=== PATIENT | male | born 1985 | race African-American/Black ===

== ENCOUNTER 2022-01-05 19:39 | Emergency (ER) | payer SELFPAY ==
--- OUTSIDE RECORDS SUMMARY | 2022-01-05 19:44 | XMS REPORT | Continuity of Care Document ---
:1985 Author Organization [facility] t Address [address] [place] [address] Care Team Providers Name Role Phone PCP, PATIENT DOES NOT HAVE A Primary Care Physician Unavaila ble HANY GRUBBS Attending Clinician Unavailable OLI PERKINS Attending Clinician Unavailable HANY GRUBBS Admitting Clinician Unavailable Problems Condition Condition Condition Status Onset Resolution Last Treating Co mments Source Name Details Category Date Date Treatment Clinician Date Nonintract Nonintract Disease Active 2017-03 M [facility]i able able [facility] headache headache 00:00: Hospit a 00 l Allergies, Adverse Reactions, Alerts Allergy Allergy Status Severity Reaction(s) Onset Inactive Treating Comm ents Source Name Type Date Date Clinician Bee Propensi Active Methodi Pollen ty to 04 st adverse 00:00: Hospita reaction 00 l s to drug NO KNOWN Drug Active [facility] ALLERGIE Class ity of [facility] Social History Social Habit Start Date Stop Date Quantity Comments Source History of Smokes tobacco [facility] Alcohol intake 2018-03-20 2018-03-20 Current drinker [facility] 00:00:00 00:00:00 of alcohol Hospital (finding) Tobacco use and 2017-07-27 2017-07-27 User of smokeless [facility] exposure 00:00[facility]00 00:00:00 tobacco Hospital Sex [facility]igned At [birth year] [facility] Smoking Status Start Date Stop Date Source Smokes tobacco daily 2017-07-27 00:00:[address] [facility] Medications Ordered Filled Start Stop Current Ordering Indication Dosage Frequency Signature Comments Components Source Medication Medication Date Date Medication? Clinician (SIG) Name Name No known 2017-03 No No known [facility] medications 05-[address] 02:32: s Hospita 08 l Procedures This patient has no known procedures. Plan of Care Planned Activity Planned Date Details Comments Source Future Scheduled 2021-11-21 HEPATITIS B [facility] Test 14:50:03 VACCINES (1 of 3 - 3-dose series) [code = HEPATITIS B VACCINES (1 of 3 - 3-dose series)] Future Scheduled 2021-11-21 COVID-19 VACCINE [facility] Test 14:50:03 (#1) [code = COVID-19 VACCINE (#1)] Future Scheduled 2021-11-21 INFLUENZA VACCINE Method [facility] Test 14:50:03 [code = INFLUENZA VACCINE] Encounters Start End Encounter Admission Attending Care Care Encounter Source Date/Time Date/Time Type Type Clinicians Facility Department ID 2019-06-19 2019-06-19 Emergency X [facility] ERT [id number] [facility] 04:41:10 06:09:00 HANY julianna [facility] 2019-06-03 2019-06-03 Emergency X [facility] ERT [id number] [facility] 09:00:44 09:00:44 OLI [facility] Results This patient has no known results.
--- NOTE | 2022-01-05 20:53 | RAD REPORT ---
EXAM DESCRIPTION: CTSpine Lumbar Wo Con01/05/2022 8:36 pm CLINICAL HISTORY: Back pain status post injury COMPARISON: None TECHNIQUE: Computed axial tomography lumbar spine was obtained with coronal and sagittal reconstruct ion. All CT scans are performed using dose optimization technique as appropriate and may include automated exposure control or mA/KV adjustment according to patient size. FINDINGS: No fracture is seen. No dislocation is noted. Possible small left paracentral disc herniation L4-5. IMPRESSION: Negative for a lumbar fracture. Possible small left paracentral disc herniation L4-5. Nonemergent MRI lumbar spine recommended further evaluation
[2022-01-05] MEDS ORDERED: HYDROCODONE/APAP 5/325 MG TAB ONE (20:57)
[2022-01-05] MEDS ORDERED: DIAZEPAM 5 MG TABLET ONE (20:57)
--- NOTE | 2022-01-05 21:37 | ER ---
Nurse's Notes [facility] Name: Errol Adrian Age: 36 yrs Sex: Male : 1985 Arrival Date: 01/05/2022 Time: 19:45 Bed 14 Private MD: Diagnosis: Low back pain;Muscle spasm of back Presentation: 01/05 19:45 Chief complaint: EMS states: Pt was lifting weights doing squats when he got stuck jb4 while going down. He tried to get up and lost his footing. The weights did not fall on him. His girlfriend was there and tried to assist but was unable to. He has a 20g in the left AC and was given 17mg of Ketamine. Noticeable knot on the lower spine. Coronavirus screen: At this time, the client does not indicate any symptoms associated with coronavirus-19. Ebola Screen: No symptoms or risks identified at this time. Initial Sepsis Screen: Does the patient meet any 2 criteria? No. Patient's initial sepsis screen is negative. Does the patient have a suspected source of infection? No. Patient's initial sepsis screen is negative. Risk Assessment: Do you want to hurt yourself or someone else? Patient reports no desire to harm self or others. Onset of symptoms was January 05, 2022. Transition of care: patient was not received from another setting of care. 19:45 Method Of Arrival: EMS: [facility] jb4 19:45 Acuity: IDA 2 jb4 Historical: - Allergies: 19:48 Bees; jb4 - Home Meds: 19:48 None [Active]; jb4 - PMHx: 19:48 None; jb4 - PSHx: 19:48 None; jb4 - Immunization history:: Adult Immunizations up to date. - Social history:: Smoking status: unknown. Screenin:45 Abuse screen: Denies threats or abuse. Nutritional screening: No deficits noted. em6 Tuberculosis screening: No symptoms or risk factors identified. Fall Risk Ambulatory Aid- None/Bed Rest/Nurse Assist (0 pts). Mental Status- Total Silva Fall Scale indicates No Risk (0-24 pts). Assessment: 19:45 General: Appears in no apparent distress. comfortable, Behavior is calm, cooperative, jb4 appropriate for age. Pain: Complains of pain in lumbar area Pain does not radiate. Pain currently is 0 out of 10 on a pain scale. at worst was 10 out of 10 on a pain scale. Neuro: Level of Consciousness is awake, alert, obeys commands, Oriented to person, place, time, situation, Weakness in bilateral arm(s) leg(s) Numbness in right foot, left foot, right leg and left leg. Cardiovascular: Patient's skin is warm and dry. Respiratory: Airway is patent Respiratory effort is even, unlabored, Respiratory pattern is regular, symmetrical. GI: No signs and/or symptoms were reported involving the gastrointestinal system. : No signs and/or symptoms were reported regarding the genitourinary system. EENT: No signs and/or symptoms were reported regarding the EENT system. Derm: Skin is intact, Skin is dry, Skin is normal, Skin temperature is warm. Musculoskeletal: Circulation, motion, and sensation intact. Range of motion: intact in all extremities. 20:30 Reassessment: Patient appears in no apparent distress at this time. Patient and/or 4 family updated on plan of care and expected duration. Pain level reassessed. Patient is alert, oriented x 3, equal unlabored respirations, skin warm/dry/pink. 21:30 Reassessment: Patient and/or family updated on plan of care and expected duration. Pain em6 level reassessed. Patient is alert, oriented x 3, equal unlabored respirations, skin warm/dry/pink. Vital Signs: 19:45 BP 135 / 72; Pulse 72; Resp 16; Temp 98.8(O); Pulse Ox 100% on R/A; Weight 81.65 kg jb4 (R); Height 6 ft. 1 in. (185.42 cm) (R); Pain 0/10; 20:15 BP 128 / 81; Pulse 48; Resp 16; Pulse Ox 99% on R/A; jb4 21:45 BP 103 / 87; Pulse 60; Resp 18; Pulse Ox 100% on R/A; em6 19:45 Body Mass Index 23.75 (81.65 kg, 185.42 cm) jb4 Kiel Coma Score: 20:15 Eye Response: spontaneous(4). Verbal Response: oriented(5). Motor Response: obeys [facility] commands(6). Total: 15. Trauma Score (Adult): 20:15 Eye Response: spontaneous(1); Verbal Response: oriented(1); Motor Response: obeys jb4 commands(2); Systolic BP: > 89 mm Hg(4); Respiratory Rate: 10 to 29 per min(4); Kiel Score: 15; Trauma Score: 12 ED Course: 19:45 Patient arrived in ED. jb4 19:45 Arm band placed on. em6 19:45 Patient has correct armband on for positive identification. Bed in low position. Call em6 light in reach. Side rails up X2. Warm blanket given. 19:45 Maintain EMS IV. Dressing intact. Good blood return noted. Site clean \T\ dry. Gauge \T\ em 6 site: 20 G left AC. IV discontinued, intact, bleeding controlled, No redness/swelling at site. Pressure dressing applied. 19:48 Triage completed. jb4 19:48 Sid Han DO is Attending Physician. ms3 19:48 Gerardo Villarreal, RN is Primary Nurse. ke1 20:36 CT Lumbar Spine Wo Con In Process Unspecified. EDMS 22:17 No provider procedures requiring assistance completed. em6 Administered Medications: 21:00 Drug: HYDROcodone-acetaminophen 5 mg-325 mg 1 tabs Route: PO; em6 21:53 Follow up: Response: No adverse reaction; RASS: Alert and Calm (0) em6 21:00 Drug: Valium (diazepam) 5 mg Route: PO; em6 21:53 Follow up: Response: No adverse reaction; RASS: Alert and Calm (0) em6 Medication: 21:52 VIS not applicable for this client. em6 Outcome: 21:36 Discharge ordered by MD. ms3 22:18 Discharged to home via wheelchair. em6 22:18 Condition: stable 22:18 Discharge instructions given to patient, Instructed on discharge instructions, follow up and referral plans. medication usage, Demonstrated understanding of instructions, follow-up care, medications, Prescriptions given X 2. 22:19 Patient left the ED. em6 Signatures: Dispatcher [employer] EDMS Mario South RN CHINO jb4 Sid Han DO DO ms3 Gerardo Villarreal RN RN ke1 Lauryn Black RN RN em6 Corrections: (The following items were deleted from the chart) 21:51 19:48 Arm band placed on jb4 em6
--- NOTE | 2022-01-05 21:37 | EDPHYS ---
Physician Documentation [facility] Name: Errol Adrian Age: 36 yrs Sex: Male : 1985 Arrival Date: 01/05/2022 Time: 19:45 Bed 14 Private MD: ED Physician Sid Han HPI: 01/05 21:23 This 36 yrs old Black Male presents to ER via EMS with complaints of back pain. ms3 21:23 36-year-old male with no past medical history presents for lower back pain that ms3 occurred while exercising doing squats. Patient states the pain is severe. Patient states the pain is better when lying flat on his back and being still. Patient is severe with movement. Patient denies urinary or bowel incontinence, urinary retention, weakness, numbness.. Historical: - Allergies: 19:48 Bees; jb4 - Home Meds: 19:48 None [Active]; jb4 - PMHx: 19:48 None; jb4 - PSHx: 19:48 None; jb4 - Immunization history:: Adult Immunizations up to date. - Social history:: Smoking status: unknown. ROS: 21:23 Constitutional: Negative for fever, and chills. Neck: Negative for injury, pain, and ms3 swelling, Cardiovascular: Negative for chest pain, and palpitations. Respiratory: Negative for shortness of breath, cough, wheezing, and pleuritic chest pain, Abdomen/GI: Negative for abdominal pain, nausea, vomiting, diarrhea, and constipation, MS/Extremity: Negative for injury and deformity, Skin: Negative for injury, rash, and discoloration. 21:23 Back: Positive for pain with movement. 21:23 All other systems are negative. Exam: 21:23 Constitutional: This is a well developed, well nourished patient who is awake, alert, ms3 and in no acute distress. Head/Face: Normocephalic, atraumatic. Neck: Trachea midline, no cervical lymphadenopathy. Supple, full range of motion without nuchal rigidity, or vertebral point tenderness. No Meningismus. Chest/axilla: Normal chest wall appearance and motion. Nontender with no deformity. Cardiovascular: Regular rate and rhythm with a normal S1 and S2. No gallops, murmurs, or rubs. Normal PMI, no JVD. No pulse deficits. Respiratory: Lungs have equal breath sounds bilaterally, clear to auscultation and percussion. No rales, rhonchi or wheezes noted. No increased work of breathing, no retractions or nasal flaring. Abdomen/GI: Soft, non-tender, with normal bowel sounds. No distension or tympany. No guarding or rebound. No evidence of tenderness throughout. Skin: Warm, dry with normal turgor. Normal color with no rashes, no lesions, and no evidence of cellulitis. 21:23 Back: pain, that is severe, of the left low back and right low back. Vital Signs: 19:45 BP 135 / 72; Pulse 72; Resp 16; Temp 98.8(O); Pulse Ox 100% on R/A; Weight 81.65 kg jb4 (R); Height 6 ft. 1 in. (185.42 cm) (R); Pain 0/10; 20:15 BP 128 / 81; Pulse 48; Resp 16; Pulse Ox 99% on R/A; jb4 21:45 BP 103 / 87; Pulse 60; Resp 18; Pulse Ox 100% on R/A; em6 19:45 Body Mass Index 23.75 (81.65 kg, 185.42 cm) jb4 Kiel Coma Score: 20:15 Eye Response: spontaneous(4). Verbal Response: oriented(5). Motor Response: obeys jb4 commands(6). Total: 15. Trauma Score (Adult): 20:15 Eye Response: spontaneous(1); Verbal Response: oriented(1); Motor Response: obeys jb4 commands(2); Systolic BP: > 89 mm Hg(4); Respiratory Rate: 10 to 29 per min(4); Deaver Score: 15; Trauma Score: 12 MDM: 19:55 Patient medically screened. ms3 21:23 Data reviewed: vital signs, nurses notes, radiologic studies, and as a result, I will ms3 discharge patient. Counseling: I had a detailed discussion with the patient and/or guardian regarding: the historical points, exam findings, and any diagnostic results supporting the discharge/admit diagnosis, radiology results, the need for outpatient follow up, to return to the emergency department if symptoms worsen or persist or if there are any questions or concerns that arise at home. ED course: Discussed CT of lumbar spine with patient and his . Patient to follow-up with Dr. Kush Grande in 2 to 3 days. Patient understands and agrees with plan. All questions were answered. Return precautions discussed include worsening symptoms, or any other concerns. 01/05 19:56 Order name: CT Lumbar Spine Wo Con; Complete Time: 20:59 ms3 Administered Medications: 21:00 Drug: HYDROcodone-acetaminophen 5 mg-325 mg 1 tabs Route: PO; em6 21:53 Follow up: Response: No adverse reaction; RASS: Alert and Calm (0) em6 21:00 Drug: Valium (diazepam) 5 mg Route: PO; em6 21:53 Follow up: Response: No adverse reaction; RASS: Alert and Calm (0) em6 Disposition Summary: 01/05/22 21:36 Discharge Ordered Location: Home ms3 Condition: Stable ms3 Diagnosis - Low back pain ms3 - Muscle spasm of back ms3 Followup: ms3 - With: Private Physician - When: 2 - 3 days - Reason: Recheck today's complaints Discharge Instructions: - Discharge Summary Sheet ms3 - Acute Back Pain, Adult ms3 Forms: - Medication Reconciliation Form ms3 - Thank You Letter ms3 - Antibiotic Education ms3 - Prescription Opioid Use ms3 Prescriptions: - Ibuprofen 600 mg Oral Tablet - take 1 tablet by ORAL route every 6 hours As needed take with food; 30 tablet; ms3 Refills: 0, Product Selection Permitted - Cyclobenzaprine 10 mg Oral Tablet - take 1 tablet by ORAL route every 8 hours As needed; 30 tablet; Refills: 0, ms3 Product Selection Permitted Signatures: Dispatcher [employer] Mraio Mena, RN RN jb4 Sid Han DO DO ms3 Lauryn Black, RN RN em6
[2022-01-05 22:27] VITALS: TEMP 98.8
[2022-01-05 22:29] VITALS: BP 103/87; O2SAT 100
== END 2022-01-05 22:19 | disposition home or self-care (01) ==
LOC: ER 19:39
DX: M54.50 Low back pain, unspecified (principal); M62.830 Muscle spasm of back
CPT/HCPCS: 72131; 99284

== ENCOUNTER 2022-11-17 17:38 | Emergency (ER) | payer SELFPAY ==
--- OUTSIDE RECORDS SUMMARY | 2022-11-17 17:40 | XMS REPORT | Continuity of Care Document ---
:1985 Author Organization [facility] t Address [address] [place] [address] Care Team Providers Name Role Phone Asked, No Pcp Primary Care Physician Unavailable HANY GRUBBS Attending Clinician Unavailable OLI PERKINS Attending Clinician Unavailable HANY GRUBBS Admitting Clinician Unavailable Problems Condition Condition Condition Status Onset Resolution Last Treating Co mments Source Name Details Category Date Date Treatment Clinician Date Nonintract Nonintract Disease Active 2017-03 M ethodi able able 2 st headache headache 00:00: Hospit a 00 l Allergies, Adverse Reactions, Alerts Allergy Allergy Status Severity Reaction(s) Onset Inactive Treating Comm ents Source Name Type Date Date Clinician Bee Propensi Active Methodi Pollen ty to [address] adverse 00:00: Hospita reaction 00 l s to drug NO KNOWN Drug Active [facility] ALLERGIE Class ity of S [facility] Social History Social Habit Start Date Stop Date Quantity Comments Source Gender identity [facility] History of tobacco Smokes tobacco [facility] History of Social 2018-11-13 2018-11-[address] function 00:00:00 00:00:00 Hospital Alcohol intake 2018-03-20 2018-03-20 Current drinker [facility] 00:00:00 00:00:00 of alcohol Hospital (finding) Tobacco use and 2017-07-27 2017-07-27 [facility] of [facility] exposure 00:00:00 00:00:00 sm[facility]eless Hospital tobacco Sex Assigned At [birth year] [facility] 00:[facility] Hospital Smoking Status Start Date Stop Date Source Smokes tobacco daily 2017-07-27 00:00:00 [facility] Medications Ordered Filled Start Stop Current Ordering Indication Dosage Frequency Signature Comments Components Source Medication Medication Date Date Medication? Clinician (SIG) Name Name No known 2017-03 No No known [facility] medications 2-[address] 02:32: s Hospita 08 l Procedures This patient has no known procedures. Plan of Care Planned Activity Planned Date Details Comments Source Future Scheduled 2022-11-17 COVID-19 VACCINE [facility] Test 02:48:27 (#1) [code = COVID-19 VACCINE (#1)] Future Scheduled 2022-11-[address] [facility] Test 02:48:27 (#1) [code = INFLUENZA VACCINE (#1)] Future Scheduled 2021-11-21 COVID-19 VACCINE [facility] Test 14:50:03 (#1) [code = COVID-19 VACCINE (#1)] Future Scheduled 2021-11-[address] [facility] Test 14:50:03 [code = INFLUENZA VACCINE] Future Scheduled 2021-11-21 [facility]ITIS B [facility] Test 14:50:03 VACCINES (1 of 3 - 3-dose series) [code = HEPATITIS B VACCINES (1 of 3 - 3-dose series)] Encounters Start End Encounter Admission Attending Care Care Encounter Source Date/Time Date/Time Type Type Clinicians Facility Department ID 2019-06-19 2019-06-19 Emergency X [facility] ERT [id number] [facility] 04:41:10 06:09:00 HANY ricks [facility] 2019-06-03 2019-06-03 Emergency X [facility] ERT [id number] [facility] 09:00:44 09:00:44 OLI julianna [facility] Results This patient has no known results.
[2022-11-17] MEDS ORDERED: NA CHLORIDE 0.9% 50 ML ONE (18:31)
[2022-11-17] MEDS ORDERED: NA CHLORIDE 0.9% 1,000 ML ONE (18:31)
[2022-11-17] MEDS ORDERED: KETOROLAC 30 MG/ML INJ ONE ×2 (18:31→18:43)
[2022-11-17] MEDS ORDERED: METOCLOPRAMIDE 10 MG/2mL INJ ONE (18:31)
[2022-11-17] MEDS ORDERED: DIPHENHYDRAMINE 50 MG/ML VIAL ONE ×2 (18:31→18:43)
[2022-11-17 18:47] LABS: Hematocrit 46.9 % (39.6-49.0); Lymphocytes % 34.5 % (15.3-44.8); MCV 83.5 fL (80-100); MPV 7.8 fL (7.6-11.3); Platelets 274 thou/uL (152-406); RBC Red Blood Cell Count 5.62 M/uL (4.33-5.43)
--- NOTE | 2022-11-17 18:52 | RAD REPORT ---
EXAM DESCRIPTION: CT - Head Brain Wo Cont - 11/17/2022 6:39 pm CLINICAL HISTORY: HEADACHE COMPARISON: Head Brain Wo Cont dated 10/08/2016 TECHNIQUE: Noncontrast head CT images were obtained without IV contrast. Multiplanar reformats were generated and reviewed. All CT scans are performed using dose optimization technique as appropriate and may include automated exposure control or mA/KV adjustment according to patient size. FINDINGS: No intracranial hemorrhage, mass, or edema. Midline structures are unremarkable. Normal ventricular caliber for age. Mcgrath-white matter differentiation is preserved, without evidence of acute infarct. No abnormal extra- axial fluid collections. Mastoid air cells and visualized portions of the paranasal sinuses are clear. No acute bony findings. IMPRESSION: No evidence of an acute intracranial process.
--- NOTE | 2022-11-17 19:30 | RAD REPORT ---
EXAM DESCRIPTION: Beata Single View11/17/2022 6:55 pm CLINICAL HISTORY: COUGH TECHNIQUE: Portable AP view of the chest. FINDINGS: The lungs are clear. No pneumothorax or effusion. The cardiomediastinal contours are unrem arkable. IMPRESSION: No acute cardiopulmonary process.
[2022-11-17 19:34] LABS: Bilirubin Total 1.6 mg/dL (0.2-1.0); Potassium 3.8 mEq/L (3.5-5.1); Protein, Total 7.2 g/dL (6.4-8.2)
[2022-11-17] MEDS ORDERED: ONDANSETRON 4 MG/2 ML VIAL ONE (19:48)
[2022-11-17] MEDS ORDERED: MORPHINE 4 MG/ML SYR ONE (19:48)
--- NOTE | 2022-11-17 20:29 | RAD REPORT ---
EXAM DESCRIPTION: CT - Head angio - 11/17/2022 8:06 pm CLINICAL HISTORY: HEADACHE COMPARISON: Head Brain Wo Cont dated 11/17/2022; Head Brain Wo Cont dated 10/08/2016; Neck Angio dated 11/17/2022 TECHNIQUE: Axial CT angiography images of the head was performed with multiplanar and maximum intens ity projection reconstructions. Images performed following intravenous administration of 90mL Isovue 370. All CT scans are performed using dose optimization technique as appropriate and may include automated exposure control or mA/KV adjustment according to patient size. FINDINGS: No evidence of large vessel occlusion. No evidence of aneurysm or dissection flap is detec juan. No flow-limiting stenosis or vascular malformation identified. Antegrade flow is seen in the vertebral arteries. The vertebral arteries are codominant. The visualized dural venous sinuses are grossly patent. IMPRESSION: No evidence of large vessel occlusion or flow-limiting stenosis.
--- NOTE | 2022-11-17 20:33 | RAD REPORT ---
EXAM DESCRIPTION: CT - Neck Angio - 11/17/2022 8:07 pm CLINICAL HISTORY: HEADACHE COMPARISON: Head angio dated 11/17/2022; Head Brain Wo Cont dated 11/17/2022 TECHNIQUE: Axial CT angiography images of the head was performed with multiplanar and maximum intens ity projection reconstructions. Images performed following intravenous administration of 90mL Isovue 370. All CT scans are performed using dose optimization technique as appropriate and may include automated exposure control or mA/KV adjustment according to patient size. Quantification of carotid stenosis, if any, is performed according to NASCET criteria. FINDINGS: Motion artifact somewhat limits evaluation. A left aortic arch is identified with normal three vessel configuration of the great vessels. No significant flow abnormality is seen of the common carotid bilaterally. No significant stenosis is identified involving the cervical segments of both internal carotid arteri es. Independent origin of the left vertebral artery as the fourth vessel from the arch. Normal flow is se en within both vertebral arteries. Right apical bulla is noted. IMPRESSION: No significant flow abnormality of the neck vessels is identified. CAROTID STENOSIS REFERENCE USING NASCET CRITERIA: % ICA stenosis = (1 - narrowest ICA diameter/diameter of distal cervical ICA) x 100. Mild - <50% stenosis. Moderate - 50-69% stenosis. Severe - 70-94% stenosis. Near occlusion - 95-99% stenosis. Occluded - 100% stenosis.
--- NOTE | 2022-11-17 20:35 | ER ---
Nurse's Notes [facility] Name: Errol Adrian Age: 37 yrs Sex: Male : 1985 Arrival Date: 11/17/2022 Time: 17:38 Bed 6 Private MD: Diagnosis: Headache;Migraine without aura, not intractable Presentation: 11/17 17:56 Chief complaint: Spouse and/or significant other states: Migraine since 1300 today, jl7 worse one he's ever had. Works nights, went to be at 0400 and woke at 1300 with the migraine, double vision in left eye and stabbing pain behind right eye. Coronavirus screen: At this time, the client does not indicate any symptoms associated with coronavirus-19. Ebola Screen: No symptoms or risks identified at this time. Initial Sepsis Screen: Does the patient meet any 2 criteria? No. Patient's initial sepsis screen is negative. Does the patient have a suspected source of infection? No. Patient's initial sepsis screen is negative. Risk Assessment: Do you want to hurt yourself or someone else? Patient reports no desire to harm self or others. Onset of symptoms is unknown. 17:56 Method Of Arrival: Ambulatory 7 17:56 Acuity: IDA 3 jl7 Triage Assessment: 17:59 Headache History: The patient has had previous headaches and this one is more severe jl7 than previous episodes. General: Appears in no apparent distress. uncomfortable, Behavior is cooperative, anxious. Pain: Complains of pain in HURLEY Pain currently is 10 out of 10 on a pain scale. Pain began suddenly, Also complains of nausea. Neuro: Level of Consciousness is awake, alert, obeys commands, Oriented to person, place, time, situation, Moves all extremities. Full function Gait is steady, Speech is normal, Facial symmetry appears normal. Historical: - Allergies: 17:59 Bees; jl7 - Home Meds: 17:59 None [Active]; jl7 - PMHx: 17:59 Migraine; jl7 - PSHx: 17:59 None; jl7 - Immunization history:: Adult Immunizations unknown. - Social history:: Smoking status: Patient reports the use of cigarette tobacco products, cigars. Screenin:14 [facility] ED Fall Risk Assessment (Adult) History of falling in the last 3 months, ph including since admission No falls in past 3 months (0 pts) Confusion or Disorientation No (0 pts) Intoxicated or Sedated No (0 pts) Impaired Gait No (0 pts) Mobility Assist Device Used No (0 pt) Altered Elimination No (0 pt) Score/Fall Risk Level 0 - 2 = Low Risk Oriented to surroundings, Maintained a safe environment, Provided non-skid footwear, Hourly rounding (assess needs \T\ fall precautionary measures) done. Abuse screen: Denies threats or abuse. Denies injuries from another. Nutritional screening: No deficits noted. Tuberculosis screening: No symptoms or risk factors identified. Assessment: 18:39 General: Appears in no apparent distress. uncomfortable, Behavior is calm, cooperative, ph appropriate for age. Pain: Complains of pain in right caodaism and right eye. Neuro: 19:47 General: Appears in no apparent distress. uncomfortable, Behavior is calm, cooperative. lg3 Pain: Complains of pain in right eye and right caodaism. Neuro: No deficits noted. Ruiz Agitation-Sedation Scale (RASS): 0 - Alert and Calm Level of Consciousness is awake, alert, obeys commands, Oriented to person, place, time, situation. Cardiovascular: No deficits noted. Denies chest pain, shortness of breath, Capillary refill < 3 seconds Clubbing of nail beds is absent JVD is absent Patient's skin is warm and dry. Respiratory: No deficits noted. Airway is patent Respiratory effort is even, unlabored, Respiratory pattern is regular, symmetrical. GI: Abdomen is round non-distended, Pt is actively vomiting bile. : No deficits noted. No signs and/or symptoms were reported regarding the genitourinary system. EENT: No deficits noted. No signs and/or symptoms were reported regarding the EENT system. Derm: Skin is intact, is healthy with good turgor, Skin is clammy, Skin is normal, Skin temperature is cool. Musculoskeletal: No deficits noted. No signs and/or symptoms reported regarding the musculoskeletal system. Circulation, motion, and sensation intact. Range of motion: intact in all extremities. Vital Signs: 17:56 BP 154 / 69; Pulse 73; Resp 17; Temp 97.9; Pulse Ox 100% ; Weight 72.57 kg; Height 6 jl7 ft. 1 in. ; Pain 10/10; 18:51 BP 149 / 78; Pulse 72; Resp 18; Pulse Ox 100% on NC; ph 19:47 BP 122 / 70; Pulse 63; Resp 17 S; Temp 98.2(O); Pulse Ox 100% on 2 lpm NC; lg3 20:55 BP 130 / 78; Pulse 62; Resp 18 S; Pulse Ox 100% on R/A; as6 17:56 Body Mass Index 21.11 (72.57 kg, 185.42 cm) jl7 17:56 Pain Scale: Adult jl7 Kiel Coma Score: 19:39 Eye Response: spontaneous(4). Motor Response: obeys commands(6). Verbal Response: lorie oriented(5). Total: 15. ED Course: 17:41 Patient arrived in ED. mr 17:59 Triage completed. jl7 17:59 Arm band placed on right wrist. jl7 18:05 Freddy Sawyer MD is Attending Physician. lorie 18:13 Alexandria Alvarez, RN is Primary Nurse. ph 18:14 Patient has correct armband on for positive identification. Bed in low position. Call light in reach. Side rails up X 1. Pulse ox on. NIBP on. Door closed. Noise minimized. Lights dimmed. Warm blanket given. 18:41 CT Head Brain wo Cont In Process Unspecified. EDMS 18:51 Initial lab(s) drawn, by me, sent to lab. Inserted saline lock: 20 gauge in right ph antecubital area, using aseptic technique. Blood collected. 18:56 Chest Single View XRAY In Process Unspecified. EDMS 19:56 CRP Sent. lg3 20:08 CT Head Angio In Process Unspecified. EDMS 20:08 CT Neck Angio In Process Unspecified. EDMS 20:17 [facility]C [facility] snw 20:56 Provided Education on: discharge teaching . as6 20:56 No provider procedures requiring assistance completed. IV discontinued, intact, as6 bleeding controlled, No redness/swelling at site. Pressure dressing applied. Administered Medications: 18:48 Drug: diphenhydrAMINE IVP 50 mg Route: IVP; Site: right antecubital; ph 19:55 Follow up: Response: No adverse reaction lg3 18:48 Drug: metoCLOPramide IVP 10 mg Route: IVP; Site: right antecubital; ph 19:55 Follow up: Response: No adverse reaction; No change in condition lg3 18:48 Drug: Ketorolac IVP 30 mg Route: IVP; Site: right antecubital; ph 19:55 Follow up: Response: No adverse reaction lg3 18:48 Drug: NS 0.9% IV 1000 ml Route: IV; Rate: 1 bolus; Site: right antecubital; ph 20:57 Follow up: Response: No adverse reaction; IV Status: Completed infusion; IV Intake: as6 1000ml 19:54 Drug: morphine IVP or IV 4 mg Route: IVP; Infused Over: 4 mins; Site: right antecubital;lg3 20:57 Follow up: Response: No adverse reaction as6 19:54 Drug: Ondansetron IVP 8 mg Route: IVP; Site: right antecubital; lg3 20:57 Follow up: Response: No adverse reaction as6 Medication: 18:13 VIS not applicable for this client. ph Intake: 20:57 IV: 1000ml; Total: 1000ml. as6 Outcome: 20:34 Discharge ordered by . snjerod 20:56 Discharged to home ambulatory. as6 20:56 Condition: stable 20:56 Discharge instructions given to patient, Instructed on discharge instructions, follow up and referral plans. medication usage, Demonstrated understanding of instructions, follow-up care, medications, Prescriptions given X 3. 20:57 Patient left the ED. as6 Signatures: Dispatcher [employer] EDFreddy Breaux MD MD cha Waters, Shelly, SPUDDER-C SPUDDER-Csnw Maci Hodges Alexandria Alvarez RN Harinder Erwin ph, RN RN jl7 Radha Slater RN RN lg3 Aidan Caballero RN RN as6
--- NOTE | 2022-11-17 20:35 | EDPHYS ---
Physician Documentation [facility] Name: Errol Adrian Age: 37 yrs Sex: Male : 1985 Arrival Date: 11/17/2022 Time: 17:38 Bed 6 Private MD: ED Physician Freddy Sawyer HPI: 11/17 19:37 This 37 yrs old Black Male presents to ER via Ambulatory with complaints of Headache. lorie 19:37 The patient complains of pain to the forehead and left eye. lorie Historical: - Allergies: 17:59 Bees; jl7 - Home Meds: 17:59 None [Active]; jl7 - PMHx: 17:59 Migraine; jl7 - PSHx: 17:59 None; jl7 - Immunization history:: Adult Immunizations unknown. - Social history:: Smoking status: Patient reports the use of cigarette tobacco products, cigars. ROS: 19:38 Constitutional: Negative for fever, chills, and weight loss, Eyes: Negative for injury, lorie pain, redness, and discharge, ENT: Negative for injury, pain, and discharge, Neck: Negative for injury, pain, and swelling, Cardiovascular: Negative for chest pain, palpitations, and edema, Respiratory: Negative for shortness of breath, cough, wheezing, and pleuritic chest pain, Abdomen/GI: Negative for abdominal pain, nausea, vomiting, diarrhea, and constipation, Back: Negative for injury and pain, : Negative for injury, bleeding, discharge, and swelling, MS/Extremity: Negative for injury and deformity, Skin: Negative for injury, rash, and discoloration, Psych: Negative for depression, anxiety, suicide ideation, homicidal ideation, and hallucinations, Allergy/Immunology: Negative for hives, rash, and allergies, Endocrine: Negative for neck swelling, polydipsia, polyuria, polyphagia, and marked weight changes, Hematologic/Lymphatic: Negative for swollen nodes, abnormal bleeding, and unusual bruising. 19:38 Neuro: Positive for headache, visual changes, of the left eye and forehead. Exam: 19:38 Constitutional: This is a well developed, well nourished patient who is awake, alert, lorie and in no acute distress. Head/Face: Normocephalic, atraumatic. Eyes: Pupils equal round and reactive to light, extra-ocular motions intact. Lids and lashes normal. Conjunctiva and sclera are non-icteric and not injected. Cornea within normal limits. Periorbital areas with no swelling, redness, or edema. ENT: Nares patent. No nasal discharge, no septal abnormalities noted. Tympanic membranes are normal and external auditory canals are clear. Oropharynx with no redness, swelling, or masses, exudates, or evidence of obstruction, uvula midline. Mucous membranes moist. Neck: Trachea midline, no thyromegaly or masses palpated, and no cervical lymphadenopathy. Supple, full range of motion without nuchal rigidity, or vertebral point tenderness. No Meningismus. Chest/axilla: Normal chest wall appearance and motion. Nontender with no deformity. No lesions are appreciated. Cardiovascular: Regular rate and rhythm with a normal S1 and S2. No gallops, murmurs, or rubs. Normal PMI, no JVD. No pulse deficits. Respiratory: Lungs have equal breath sounds bilaterally, clear to auscultation and percussion. No rales, rhonchi or wheezes noted. No increased work of breathing, no retractions or nasal flaring. Abdomen/GI: Soft, non-tender, with normal bowel sounds. No distension or tympany. No guarding or rebound. No evidence of tenderness throughout. Back: No spinal tenderness. No costovertebral tenderness. Full range of motion. Skin: Warm, dry with normal turgor. Normal color with no rashes, no lesions, and no evidence of cellulitis. MS/ Extremity: Pulses equal, no cyanosis. Neurovascular intact. Full, normal range of motion. Neuro: Awake and alert, GCS 15, oriented to person, place, time, and situation. Cranial nerves II-XII grossly intact. Motor strength 5/5 in all extremities. Sensory grossly intact. Cerebellar exam normal. Normal gait. Psych: Awake, alert, with orientation to person, place and time. Behavior, mood, and affect are within normal limits. 19:47 Neck: Trachea: is midline with no obvious abnormalities, ROM/movement: is normal, no lorie acute changes, pain, is not appreciated, limited range of motion, is not appreciated, Meningeal signs: are not present, Kernig's sign is negative, Brudzinski's sign is negative, Lymph nodes: no appreciated lymphadenopathy. Vital Signs: 17:56 BP 154 / 69; Pulse 73; Resp 17; Temp 97.9; Pulse Ox 100% ; Weight 72.57 kg; Height 6 jl7 ft. 1 in. ; Pain 10/10; 18:51 BP 149 / 78; Pulse 72; Resp 18; Pulse Ox 100% on NC; ph 19:47 BP 122 / 70; Pulse 63; Resp 17 S; Temp 98.2(O); Pulse Ox 100% on 2 lpm NC; lg3 20:55 BP 130 / 78; Pulse 62; Resp 18 S; Pulse Ox 100% on R/A; as6 17:56 Body Mass Index 21.11 (72.57 kg, 185.42 cm) 7 17:56 Pain Scale: Adult jl7 Kiel Coma Score: 19:39 Eye Response: spontaneous(4). Motor Response: obeys commands(6). Verbal Response: lorie oriented(5). Total: 15. MDM: 18:05 Patient medically screened. lorie 19:39 Differential diagnosis: cervical epidural bleed, cerebral vascular accident, epidural lorie hematoma, glaucoma, hyponatremia, intracerebral hemorrhage, meningoencephalitis, sinusitis, subarachnoid bleed, subdural hematoma, temporal arteritis, tension headache, traumatic injuries, trigeminal neuralgia. Data reviewed: vital signs, nurses notes, lab test result(s), EKG, radiologic studies, CT scan, plain films. Consideration of Admission/Observation Escalation of care including admission/observation considered. I considered the following discharge prescriptions or medication management in the emergency department Medications were administered in the Emergency Department. See MAR. Independent interpretation of the following test(s) in the Emergency Department EKG: See my EKG interpretation above CT Scan: My interpretation is ct head negative. Test considered but Not performed: MRI: no mri brain. Historians other than the Patient: Spouse/Significant Other: , infomed. 11/17 18:08 Order name: CBC with Diff; Complete Time: 19:25 [facility] 11/17 18:08 Order name: Comprehensive Metabolic Panel; Complete Time: 19:36 [facility] 11/17 19:36 Order name: Urinalysis w/ reflexes [facility] 11/17 19:36 Order name: UDS [facility] 11/17 19:44 Order name: CRP; Complete Time: 20:34 [facility] 11/17 18:08 Order name: CT Head Brain wo Cont; Complete Time: 19:25 [facility] 11/17 18:08 Order name: Chest Single View XRAY; Complete Time: 19:36 [facility] 11/17 19:36 Order name: CT Head Angio; Complete Time: 20:34 [facility] 11/17 19:36 Order name: CT Neck Angio; Complete Time: 20:35 [facility] 11/17 18:08 Order name: EKG; Complete Time: 18:09 [facility] 11/17 18:08 Order name: EKG - Nurse/Tech; Complete Time: 20:35 [facility] 11/17 18:08 Order name: Oxygen; Complete Time: 18:50 [facility] EC:43 Rate is 53 beats/min. Rhythm is regular. AK interval is normal. QRS interval is normal. snw QT interval is normal. Clinical impression: Sinus bradycardia. Administered Medications: 18:48 Drug: diphenhydrAMINE IVP 50 mg Route: IVP; Site: right antecubital; ph 19:55 Follow up: Response: No adverse reaction lg3 18:48 Drug: metoCLOPramide IVP 10 mg Route: IVP; Site: right antecubital; ph 19:55 Follow up: Response: No adverse reaction; No change in condition lg3 18:48 Drug: Ketorolac IVP 30 mg Route: IVP; Site: right antecubital; ph 19:55 Follow up: Response: No adverse reaction lg3 18:48 Drug: NS 0.9% IV 1000 ml Route: IV; Rate: 1 bolus; Site: right antecubital; ph 20:57 Follow up: Response: No adverse reaction; IV Status: Completed infusion; IV Intake: as6 1000ml 19:54 Drug: morphine IVP or IV 4 mg Route: IVP; Infused Over: 4 mins; Site: right antecubital;lg3 20:57 Follow up: Response: No adverse reaction as6 19:54 Drug: Ondansetron IVP 8 mg Route: IVP; Site: right antecubital; lg3 20:57 Follow up: Response: No adverse reaction as6 Disposition Summary: 11/17/22 20:34 Discharge Ordered Location: Home snw Problem: new snw Symptoms: have improved snw Condition: Stable snw Diagnosis - Headache snw - Migraine without aura, not intractable snw Followup: [facility] - With: Private Physician - When: 2 - 3 days - Reason: Recheck today's complaints, Continuance of care, Re-evaluation by your physician Discharge Instructions: - Discharge Summary Sheet lorie - General Headache Without Cause lorie - Migraine Headache lorie - Migraine Headache, [id number] lorie - General Headache Without Cause, [id number] lorie Forms: - Medication Reconciliation Form snw - Thank You Letter snw - Antibiotic Education snw - Prescription Opioid Use snw - Patient Portal Instructions snw - Leadership Thank You Letter snw Prescriptions: - Fioricet with Codeine 32-911-69-30 mg Oral capsule - take 2 capsule by ORAL route every 4 hours as needed for pain; do not exceed 6 lorie caps per day; 15 capsule; Refills: 0, Product Selection Permitted - ondansetron 4 mg Oral Tablet,disintegrating - take 1 tablet by ORAL route every 6-8 hours for 5 days; 20 tablet; Refills: 0, lorie Product Selection Permitted - Diclofenac Sodium 75 mg Oral tablet,delayed release (DR/EC) - take 1 tablet by ORAL route 2 times per day; 14 tablet; Refills: 0, Product lorie Selection Permitted Signatures: Dispatcher [employer] EDME Freddy Sawyer MD MD cha Waters, Shelly, ARMHOLE RAISER LOCKSTITCH-C ARMHOLE RAISER LOCKSTITCH-Csnw Alexandria Alvarez, RN RN Harinder Bernard, RN RN jl7 Radha Slater RN RN lg3 Aidan Caballero RN as6
[2022-11-17 20:56] LABS: Urine Bacteria None Seen /HPF (<20); Urine Bilirubin NEGATIVE (Negative); Urine Blood Negative (Negative); Urine Clarity Clear (Clear); Urine Color Yellow (Yellow); Urine Glucose NEGATIVE (Negative); Urine Mucus 4+ /HPF (None Seen); Urine Protein 1+ (Negative); Urine RBC <5 /HPF (None Seen); Urine Urobilinogen Normal (Normal); Urine pH 6.5 (5.0-7.0)
[2022-11-17 21:00] LABS: Specific Gravity > 1.030 (1.005-1.030)
[2022-11-17 21:02] LABS: Barbiturates NEGATIVE (NEGATIVE); Benzodiazepines NEGATIVE (NEGATIVE); Cocaine NEGATIVE (NEGATIVE); METHAMPHETAM NEGATIVE (NEGATIVE); Methadone NEGATIVE (NEGATIVE); Opiates POSITIVE (NEGATIVE); Phencyclidine NEGATIVE (NEGATIVE); THC Cannibis POSITIVE (NEGATIVE)
[2022-11-17 21:39] VITALS: O2SAT 100
[2022-11-17 21:41] VITALS: TEMP 98.2
[2022-11-17 21:42] VITALS: BP 130/78
--- NOTE | 2022-11-18 12:13 | EKG ---
Test Date: 2022-11-17 Test Time: 20:38:51 Hotel Staff Member: RV MEASUREMENT RESULTS: Intervals: Rate: 53 ND: 124 QRSD: 94 QT: 458 QTc: 429 [place]: P: 76 ND: 124 QRS: 82 T: 64 INTERPRETIVE STATEMENTS: Sinus bradycardia with sinus arrhythmia Incomplete right bundle branch block Borderline ECG Compared to ECG 10/08/2016 17:48:40 Sinus rhythm no longer present Electronically Signed On 11-18-22 12:12:02 CDT by Laron Moreno
== END 2022-11-17 20:57 | disposition home or self-care (01) ==
LOC: ER 17:38
DX: G43.009 Migraine without aura, not intractable, without status migrainosus (principal)
CPT/HCPCS: 36415; 70450; 70496; 70498; 71045; 80053; 80307; 81001; 85025; 86140; 93005; 96361; 96374; 96375; 99284; J1200; J2405; J2765; J7030; Q9967

== ENCOUNTER 2025-01-20 10:50 | Emergency (ER) | payer OTHER, SELFPAY ==
[2025-01-20] MEDS ORDERED: LIDOCAINE 2% W/EPI 1:200,000 MPF 20 ML VIAL IM ONE (11:18)
--- NOTE | 2025-01-20 12:01 | EDPHYS ---
Physician Documentation [facility] Name: Errol Adrian Age: 39 yrs Sex: Male : 1985 Arrival Date: 01/20/2025 Time: 10:50 Bed 15 Private MD: ED Physician Ileana Wilkerson HPI: 01/20 11:55 This 39 yrs old Black Male presents to ER via Ambulatory with complaints of Laceration dr5 To Hand. 11:55 The patient has a laceration. Onset: The symptoms/episode began/occurred acutely. dr5 Patient is a 39-year-old male with history of migraines coming in with laceration to the palm of right hand that occurred prior to arrival with circular saw. Patient is not up-to-date on tetanus. Patient denies numbness or tingling.. Historical: - Allergies: 11:09 Bees; ap3 - Home Meds: 11:09 None [Active]; ap3 - PMHx: 11:09 Migraine; ap3 - Immunization history:: Last tetanus immunization: up to date. - Infectious Disease History:: Denies. - Social history:: Smoking status: Patient reports the use of cigarette tobacco products, chewing tobacco, Patient uses alcohol, occasionally. street drugs, marijuana. ROS: 11:55 Constitutional: as per hpi dr5 Exam: 11:55 Constitutional: This is a well developed, well nourished patient who is awake, alert, dr5 and in no acute distress. Head/Face: Normocephalic, atraumatic. Eyes: Pupils equal round and reactive to light, extra-ocular motions intact. Lids and lashes normal. Conjunctiva and sclera are non-icteric and not injected. Cornea within normal limits. Periorbital areas with no swelling, redness, or edema. Chest/axilla: Normal chest wall appearance and motion. Nontender with no deformity. No lesions are appreciated. Cardiovascular: Regular rate and rhythm with a normal S1 and S2. Normal PMI, no JVD. No pulse deficits. Respiratory: Lungs have equal breath sounds bilaterally, clear to auscultation. No rales, rhonchi or wheezes noted. No increased work of breathing, no retractions or nasal flaring. Abdomen/GI: Soft, non-tender, non-distended Back: No spinal tenderness. No costovertebral tenderness. Full range of motion. MS/ Extremity: Pulses equal, no cyanosis. Neurovascular intact. Full, normal range of motion. Neuro: Awake and alert, GCS 15, oriented to person, place, time, and situation. Cranial nerves II-XII grossly intact. Motor strength 5/5 in all extremities. Sensory grossly intact. Cerebellar exam normal. Normal gait. 11:55 Skin: injury, laceration(s), the wound is approximately 2 cm(s), with a depth of 1 cm(s), of the heel of right hand, 11:55 Musculoskeletal/extremity: Tendon exam: specific tendon testing normal through active dr5 and passive range of motion Vital Signs: 11:07 BP 136 / 86; Pulse 77; Resp 17; Temp 98.3; Pulse Ox 97% on R/A; Weight 76.2 kg; Height ap3 6 ft. 1 in. ; Pain 7/10; 11:07 Body Mass Index 22.16 (76.20 kg, 185.42 cm) ap3 11:07 Pain Scale: Adult ap3 Laceration: 11:55 Wound Repair of 2cm ( 0.8in ) subcutaneous laceration to heel of right hand. Linear dr5 shaped.. Distal neuro/vascular/tendon intact. Anesthesia: Local anesthetic administered with 2 mls of 1% lidocaine w/ Epi. Wound prep: Simple cleansing. Skin closed with 5 4-0 Prolene using simple sutures and sterile technique. Dressed with non-adherent dressing. Patient tolerated well. MDM: 11:00 Medical Screening Exam initiated dr5 11:55 Differential diagnosis: superficial laceration, Laceration, abrasion, contusion. Data dr5 reviewed: vital signs, nurses notes. Consideration of Admission/Observation Escalation of care including admission/observation considered. Escalation considered if patient had tendon involvement. I considered the following discharge prescriptions or medication management in the emergency department I discussed and recommended Over The Counter medications, Medications were administered in the Emergency Department. See MAR. Care significantly affected by the following chronic conditions: Migraine. Care significantly affected by the following Social Determinants of Health: Poor access to healthcare and/or lack of insurance, Poor access to transportation, Problems related to employment. Counseling: I had a detailed discussion with the patient and/or guardian regarding the historical points, exam findings, and any diagnostic results supporting the discharge/admit diagnosis, the presence of at least one elevated blood pressure reading (>120/80) during this emergency department visit, the need for outpatient follow up, for definitive care, a family practitioner, to return to the emergency department if symptoms worsen or persist or if there are any questions or concerns that arise at home. Medication response: Lidocaine. Special discussion: I discussed with the patient/guardian in detail that at this point there is no indication for admission to the hospital. It is understood, however, that if the symptoms persist or worsen the patient needs to return immediately for re-evaluation. Based on the history and exam findings, there is no indication for further emergent testing or inpatient evaluation. I discussed with the patient/guardian the need to see the primary care provider for further evaluation of the symptoms. ED course: Tetanus updated in ER. Patient remove sutures in 10 to 14 days. All question answered. Strict ER precautions given.. 01/20 11:16 Order name: Dressing - Wound; Complete Time: 11:20 dr5 01/20 11:16 Order name: Gloves, Sterile; Complete Time: 11:20 dr5 01/20 11:16 Order name: Prolene, Sutures; Complete Time: 11:20 dr5 01/20 11:16 Order name: Setup Suture Tray; Complete Time: 11:20 dr5 01/20 11:54 Order name: Wound Care; Complete Time: 12:14 dr5 Administered Medications: 11:36 Drug: Lidocaine-Epinephrine Infiltration -1%: (1:100,000) 20 ml 20 ml Infiltration ll1 once; to bedside {Note: by Malachi during suture repair.} Volume: 20 ml; Route: Infiltration; 12:10 Drug: Boostrix Tdap IM 0.5 ml IM once; as a single dose Route: IM; Site: left deltoid; ll1 12:15 Follow up: Response: No adverse reaction ll1 Disposition Summary: 01/20/25 12:01 Discharge Ordered Notes: Location: Home dr5 Condition: Stable dr5 Diagnosis - Laceration of superficial palmar arch of right hand dr5 Followup: dr5 - With: Emergency Department - When: As needed - Reason: Worsening of condition Followup: dr5 - With: Private Physician - When: 10 - 14 days - Reason: Staple/Suture removal Discharge Instructions: - Discharge Summary Sheet ll1 - Laceration Care, Adult dr5 Forms: - Work release form ll1 - Medication Reconciliation Form dr5 - Patient Portal Instructions dr5 - Leadership Thank You Letter dr5 Signatures: Mary Longoria, RN RN ap3 Yi Sanches, RN RN ll1 Malachi Ny, ENVIRONMENTAL TECHNICAL OFFICER-C ENVIRONMENTAL TECHNICAL OFFICER-Cdr5
--- NOTE | 2025-01-20 12:01 | ER ---
Nurse's Notes [facility] Name: Errol Adrian Age: 39 yrs Sex: Male : 1985 Arrival Date: 01/20/2025 Time: 10:50 Bed 15 Private MD: Diagnosis: Laceration of superficial palmar arch of right hand Presentation: 01/20 11:07 Chief complaint: Patient states: he cut his right hand with a saw approx 20mins prior ap3 to arrival. patient currently rates his pain as a 7/10 on the pain scale. Coronavirus screen: At this time, the client does not indicate any symptoms associated with coronavirus-19. Ebola Screen: No symptoms or risks identified at this time. Complicating Factors: laceration with saw. Initial Sepsis Screen: Does the patient meet any 2 criteria? No. Patient's initial sepsis screen is negative. Does the patient have a suspected source of infection? No. Patient's initial sepsis screen is negative. Risk Assessment: Do you want to hurt yourself or someone else? Patient reports no desire to harm self or others. Onset of symptoms was January 20, 2025. Care prior to arrival: wound care. Mechanism of Injury: Laceration sustained from saw Injury was accidental. Transition of care: patient was not received from another setting of care. 11:07 Method Of Arrival: Ambulatory ap3 11:07 Acuity: IDA 4 ap3 Triage Assessment: 11:10 General: Appears in no apparent distress. Behavior is calm, cooperative, appropriate ap3 for age. Pain: Complains of pain in right hand Pain currently is 7 out of 10 on a pain scale. Pain began suddenly. Neuro: Level of Consciousness is awake, alert, obeys commands, Oriented to person, place, time, situation, Appropriate for age Gait is steady, Speech is normal. Cardiovascular: Patient's skin is warm and dry. Respiratory: Airway is patent Respiratory effort is even, unlabored, Respiratory pattern is regular, symmetrical. Injury Description: Laceration sustained to right hand. Historical: - Allergies: 11:09 Bees; ap3 - Home Meds: 11:09 None [Active]; ap3 - PMHx: 11:09 Migraine; ap3 - Immunization history:: Last tetanus immunization: up to date. - Infectious Disease History:: Denies. - Social history:: Smoking status: Patient reports the use of cigarette tobacco products, chewing tobacco, Patient uses alcohol, occasionally. street drugs, marijuana. Screenin:11 Abuse screen: Denies threats or abuse. Nutritional screening: No deficits noted. ap3 Tuberculosis screening: No symptoms or risk factors identified. 11:36 [facility] ED Fall Risk Assessment (Adult) History of falling in the last 3 months, ll1 including since admission No falls in past 3 months (0 pts) Confusion or Disorientation No (0 pts) Intoxicated or Sedated No (0 pts) Impaired Gait No (0 pts) Mobility Assist Device Used No (0 pt) Altered Elimination No (0 pt) Score/Fall Risk Level 0 - 2 = Low Risk Maintained a safe environment, Hourly rounding (assess needs \T\ fall precautionary measures) done. Assessment: 11:36 Reassessment: Malachi at . ll1 Vital Signs: 11:07 BP 136 / 86; Pulse 77; Resp 17; Temp 98.3; Pulse Ox 97% on R/A; Weight 76.2 kg; Height ap3 6 ft. 1 in. ; Pain 7/10; 11:07 Body Mass Index 22.16 (76.20 kg, 185.42 cm) ap3 11:07 Pain Scale: Adult ap3 ED Course: 10:53 Patient arrived in ED. al6 10:56 [facility] Ny [facility]C [facility] 10:56 Ileana Wilkerson MD is Attending Physician. dr5 11:09 Triage completed. ap3 11:10 Arm band placed on left wrist. ap3 11:23 Yi Sanches, RN is Primary Nurse. ll1 11:36 Patient has correct armband on for positive identification. Bed in low position. ll1 Provided Education on: ER procedures and process. Administered Medications: 11:36 Drug: Lidocaine-Epinephrine Infiltration -1%: (1:100,000) 20 ml 20 ml Infiltration ll1 once; to bedside {Note: by Malachi during suture repair.} Volume: 20 ml; Route: Infiltration; 12:10 Drug: Boostrix Tdap IM 0.5 ml IM once; as a single dose Route: IM; Site: left deltoid; ll1 12:15 Follow up: Response: No adverse reaction ll1 Outcome: 12:01 Discharge ordered by . dr5 12:15 Patient left the ED. ll1 Signatures: Prokisch, Mary, RN RN ap3 Yi Sanches RN RN ll1 Malachi Ny, CASHIER RECEPTIONIST-C CASHIER RECEPTIONIST-Cdr5 Suyapa Shelton
[2025-01-20] MEDS ORDERED: TDAP (DIPHTH,PERTUSS(ACELL),TET VAC) 0.5 ML VIAL IMVAC ONE (12:08)
[2025-01-20 12:42] VITALS: BP 136/86; TEMP 98.3; O2SAT 97
== END 2025-01-20 12:15 | disposition home or self-care (01) ==
LOC: ER 10:50
DX: S61.411A Laceration without foreign body of right hand, initial encounter (principal); Z23 Encounter for immunization
CPT/HCPCS: 12001; 90715; 96372; 99284